=== PATIENT | male | born 1985 | race Caucasian/White ===

== ENCOUNTER 2017-03-28 01:57 | Emergency (ER) | payer OTHER ==
[~2017-03-28] VITALS: Ht 185.4 cm; Wt 92.5 kg
[~2017-03-28 01:57] MED LIST: AMOXICILLIN875 MG PO; AZITHROMYCIN 2250 MG PO; CELEXA20 MG PO; GLIMEPIRIDE2 MG PO; IBUPROFEN 800800 M1 PO; MAGIC MOUTHWASH SWISH&SPIT; METFORMIN HCL500 MG PO; NOHOMEMEDICATIONS; PREDNISONE50 MG PO; PROAIR HFA8.5 GM INH; VENTOLIN HFA 1818 GM INH; ZOFRAN ODT4 MG PO
[2017-03-28 02:52] VITALS: BP 106/73
== END 2017-03-28 02:52 | disposition home or self-care (01) ==
LOC: M.ERS 01:57
DX: S61.213A Laceration without foreign body of left middle finger without damage to nail, initial encounter (principal); E11.9 Type 2 diabetes mellitus without complications; F17.210 Nicotine dependence, cigarettes, uncomplicated; W26.8XXA Contact with other sharp object(s), not elsewhere classified, initial encounter; Y93.89 Activity, other specified; Y92.89 Other specified places as the place of occurrence of the external cause; Y99.8 Other external cause status

== ENCOUNTER 2017-04-24 18:18 | Emergency (ER) | payer OTHER ==
[~2017-04-24] VITALS: Ht 185.4 cm; Wt 92.5 kg
[2017-04-24 19:22] LABS: URINE BILIRUBIN NEGATIVE (Negative); URINE BLOOD NEGATIVE (Negative); URINE CLARITY CLEAR; URINE COLOR YELLOW; URINE GLUCOSE-RANDOM 3+ (Negative); URINE KETONES NEGATIVE (Negative); URINE LEUKOCYTES-REFLEX NEGATIVE (Negative); URINE NITRITE-REFLEX NEGATIVE (Negative); URINE PROTEIN NEGATIVE (Negative); URINE SPECIFIC GRAVITY >= 1.030 (1.005-1.030); URINE UROBILINOGEN 0.2 E.U./dl (0.2-1.0)
[2017-04-24 19:34] LABS: ABSOLUTE BASOPHILS 0.1 thou/uL (0.0-0.2); ABSOLUTE EOSINOPHILS 0.1 thou/uL (0.0-0.7); ABSOLUTE LYMPHOCYTES 3.6 thou/uL (0.8-5.3); ABSOLUTE MONOCYTES 0.8 thou/uL (0.0-1.2); ABSOLUTE NEUTROPHILS 6.1 thou/uL (1.6-8.1); BASOPHILS 0.7 %; EOSINOPHILS 1.4 %; HEMATOCRIT 50.9 % (42.0-52.0); LYMPHOCYTES 33.3 %; MCH 30.8 pg (26.0-34.0); MCHC 35.3 g/dL (28.0-37.0); MCV 87.4 fL (80.0-100.0); MONOCYTES 7.8 %; MPV 7.9 fl. (7.2-11.1); NUCLEATED RBCS 0 /100WBC; PLATELET COUNT* 190 thou/uL (150-400); POLYS 56.8 %; RBC 5.83 mil/uL (4.50-6.00); RDW-CV 13.5 % (10.5-14.5); WBC 10.8 thou/uL (4.0-11.0)
[2017-04-24 19:36] LABS: AMP/METHAMP Negative (Negative); BARBITURATES Negative (Negative); BENZODIAZEPINES Negative (Negative); COCAINE Negative (Negative); METHADONE Negative (Negative); OPIATES Negative (Negative); PCP Negative (Negative); THC Negative (Negative)
[2017-04-24 19:46] LABS: ANION GAP 8 mmol/L (7-16); BUN 10 mg/dL (7-18); CALCIUM 9.1 mg/dL (8.5-10.1); CHLORIDE 103 mmol/L (98-107); CO2 30 mmol/L (21-32); CREATININE 0.8 mg/dL (0.6-1.3); GLUCOSE 201 mg/dL (70-99); POTASSIUM 3.8 mmol/L (3.5-5.1); SODIUM 141 mmol/L (136-145)
[2017-04-24 19:50] LABS: ALKALINE PHOSPHATASE 69 U/L (46-116); LIPASE 178 U/L (73-393); SGOT 14 U/L (15-37); SGPT 27 U/L (30-65); TOTAL BILIRUBIN 0.8 mg/dL (<0.1-1.0); TOTAL PROTEIN 7.5 g/dL (6.4-8.2); TROPONIN-I LEVEL <0.06 ng/mL (<0.06)
[2017-04-24] MEDS ORDERED: ZOFRAN4 MG PO (20:05)
[2017-04-24 20:22] VITALS: BP 112/62
--- NOTE | 2017-04-25 15:37 | EKG ---
[place] [address] ELECTROCARDIOGRAM REPORT Name: ROSANNE VERONICA Room: [facility]#: [id number] Admission: 04/24/17 Attend Phys: Discharge: 04/24/17 Date of : 83 Report #: [id number] THIS REPORT FOR: //name// [facility] ED Test Date: 2017-04-24 Test Time: 18:58:56 Pat Name: ROSANNE VERONICA Department: Room: Gender: Cash Applications Specialist: TANYA Lozano : 1985 Requested By: Faiza Ferrari Order Number: [id number] MD: Suarj Ayala Measurements Intervals [place] Rate: 82 P: 28 [place]: 140 QRS: 21 QRSD: 99 T: 40 QT: 391 QTc: 457 Interpretive Statements Sinus rhythm Baseline wander in lead(s) V2 Compared to ECG 04/12/2016 23:31:29 ST (T wave) deviation no longer present Electronically Signed On 04-25-2017 15:36:56 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
== END 2017-04-24 20:23 | disposition home or self-care (01) ==
LOC: M.ERS 18:18
PROVIDERS: Nurse Practitioner Family
DX: B34.9 Viral infection, unspecified (principal); R73.9 Hyperglycemia, unspecified; J45.909 Unspecified asthma, uncomplicated; F17.210 Nicotine dependence, cigarettes, uncomplicated

== ENCOUNTER 2017-08-15 13:55 | Emergency (ER) | payer OTHER ==
[~2017-08-15] VITALS: Ht 185.4 cm; Wt 88.9 kg
[~2017-08-15 13:55] MED LIST changes: +ZOFRAN4 MG PO
[2017-08-15] MEDS ORDERED: METFORMIN HCL500 MG PO (14:04)
[2017-08-15] MEDS ORDERED: CELEXA20 MG PO (14:04)
[2017-08-15] MEDS ORDERED: TOPAMAX50 MG PO (14:04)
[2017-08-15] MEDS ORDERED: ZPAK PO (15:03)
[2017-08-15] MEDS ORDERED: VENTOLIN HFA 1818 GM INH (15:03)
[2017-08-15] MEDS ORDERED: PREDNISONE50 MG PO (15:03)
[2017-08-15 15:12] VITALS: BP 117/63
== END 2017-08-15 15:14 | disposition home or self-care (01) ==
LOC: M.ERS 13:55
DX: J40 Bronchitis, not specified as acute or chronic (principal)

== ENCOUNTER 2018-04-28 05:52 | Emergency (ER) | payer OTHER ==
[~2018-04-28] VITALS: Ht 185.4 cm; Wt 91.6 kg
[~2018-04-28 05:52] MED LIST changes: +TOPAMAX50 MG PO; +ZPAK PO
[2018-04-28] MEDS ORDERED: ZOFRAN ODT4 MG PO (06:43)
[2018-04-28 07:11] LABS: INFLUENZA A ANTIGEN NEG (None Detect); INFLUENZA B ANTIGEN NEG (None Detect)
[2018-04-28 08:00] VITALS: BP 99/64
== END 2018-04-28 08:02 | disposition home or self-care (01) ==
LOC: M.ERS 05:52
PROVIDERS: Personal Emergency Response Attendant
DX: R11.2 Nausea with vomiting, unspecified (principal); F17.210 Nicotine dependence, cigarettes, uncomplicated; J45.909 Unspecified asthma, uncomplicated; E11.9 Type 2 diabetes mellitus without complications; F32.9 Major depressive disorder, single episode, unspecified; F41.9 Anxiety disorder, unspecified

== ENCOUNTER 2019-03-19 19:10 | Emergency (ER) | payer OTHER ==
[~2019-03-19] VITALS: Ht 185.4 cm; Wt 92.5 kg
[2019-03-19] MEDS ORDERED: TRULICITY1.5 MG/0.5 SUBQ (19:47)
[2019-03-19 20:42] LABS: URINE BLOOD NEGATIVE (Negative); URINE CLARITY CLEAR; URINE COLOR YELLOW; URINE GLUCOSE-RANDOM 2+ (Negative); URINE KETONES NEGATIVE (Negative); URINE LEUKOCYTES-REFLEX NEGATIVE (Negative); URINE NITRITE-REFLEX NEGATIVE (Negative); URINE PROTEIN NEGATIVE (Negative); URINE SPECIFIC GRAVITY 1.025 (1.005-1.030)
[2019-03-19 20:45] LABS: ICTOTEST (BILI CONFIRMATORY) Negative (Negative); URINE BILIRUBIN 1+ (Negative)
[2019-03-19 20:55] LABS: ABSOLUTE BASOPHILS 0.1 thou/uL (0.0-0.2); ABSOLUTE EOSINOPHILS 0.5 thou/uL (0.0-0.7); ABSOLUTE LYMPHOCYTES 3.1 thou/uL (0.8-5.3); ABSOLUTE MONOCYTES 0.6 thou/uL (0.0-1.2); ABSOLUTE NEUTROPHILS 7.5 thou/uL (1.6-8.1); BASOPHILS 0.6 %; HEMATOCRIT 52.9 % (42.0-52.0); HEMOGLOBIN 18.5 gm/dL (14.0-18.0); LYMPHOCYTES 26.2 %; MCHC 34.9 g/dL (28.0-37.0); MCV 88.9 fL (80.0-100.0); MONOCYTES 5.1 %; MPV 7.4 fl. (7.2-11.1); NUCLEATED RBCS 0 /100WBC; PLATELET COUNT* 203 thou/uL (150-400); POLYS 64.1 %; RBC 5.96 mil/uL (4.50-6.00); RDW-CV 13.3 % (10.5-14.5); WBC 11.7 thou/uL (4.0-11.0)
[2019-03-19 21:03] LABS: CALCIUM 8.8 mg/dL (8.5-10.1); CREATININE 0.9 mg/dL (0.6-1.3); POTASSIUM 3.4 mmol/L (3.5-5.1)
[2019-03-19 21:03] LABS: INFLUENZA A ANTIGEN Negative (Negative); INFLUENZA B ANTIGEN Negative (Negative)
[2019-03-19 21:07] LABS: ALBUMIN 3.8 g/dL (3.4-5.0); TOTAL BILIRUBIN 0.7 mg/dL (<0.1-1.0); TOTAL PROTEIN 7.4 g/dL (6.4-8.2)
[2019-03-19 21:25] VITALS: BP 110/80
== END 2019-03-19 21:25 | disposition home or self-care (01) ==
LOC: M.ERS 19:10
PROVIDERS: Emergency Medicine; Nurse Practitioner Family
DX: R42 Dizziness and giddiness (principal); J02.9 Acute pharyngitis, unspecified; T50.995A Adverse effect of other drugs, medicaments and biological substances, initial encounter; J45.909 Unspecified asthma, uncomplicated; F32.9 Major depressive disorder, single episode, unspecified; F41.9 Anxiety disorder, unspecified; E11.9 Type 2 diabetes mellitus without complications; F17.210 Nicotine dependence, cigarettes, uncomplicated; Y92.89 Other specified places as the place of occurrence of the external cause